=== PATIENT | male | born 1940 | race Caucasian/White ===

== ENCOUNTER 2020-10-09 22:54 | Observation (INO) | payer OTHER, MEDICARE ==
[~2020-10-09] VITALS: Ht 172.7 cm; Wt 80.4 kg
[2020-10-09 23:13] LABS: BASOPHILS ABSOLUTE AUTO 0.07 K/mm3 (0.00-0.23); BASOPHILS PERCENT AUTO 1 % (0-2); EOSINOPHILS ABSOLUTE AUTO 0.26 K/mm3 (0.00-0.68); EOSINOPHILS PERCENT AUTO 4 % (0-6); Hemoglobin 12.7 g/dL (13.5-17.5); IMMATURE GRAN ABSOLUTE AUTO 0.01 K/mm3 (0.00-0.10); IMMATURE GRAN PERCENT AUTO 0 % (0-1); LYMPHOCYTES ABSOLUTE AUTO 1.75 K/mm3 (0.84-5.20); LYMPHOCYTES PERCENT AUTO 25 % (21-46); MONOCYTES ABSOLUTE AUTO 0.63 K/mm3 (0.16-1.47); MONOCYTES PERCENT AUTO 9 % (4-13); Mean Corpuscular HGB 32.4 pg (26.0-34.0); Mean Corpuscular HGB Conc 33.4 g/dL (31.5-36.5); Mean Corpuscular Volume 97 fL (80-100); NEUTROPHILS ABSOLUTE AUTO 4.38 K/mm3 (1.96-9.15); NEUTROPHILS PERCENT AUTO 62 % (41-73); Platelet Count 176 K/mm3 (150-400); RDW Coefficient Variation 12.6 % (11.7-14.2); RDW Standard Deviation 44.9 fL (35.1-46.3); Red Blood Cell Count 3.92 M/mm3 (4.30-5.90)
[2020-10-09 23:27] LABS: Alanine Aminotransfer (ALT/SGP 34 U/L (12-78); Albumin, Blood 3.9 g/dL (3.4-5.0); Albumin/Globulin Ratio 1.2 (0.8-1.8); Alk Phos 63 U/L (50-136); Anion Gap 5 mmol/L (6-16); Aspartate Aminotrans (AST/SGOT 34 U/L (12-37); Bilirubin, Total 0.6 mg/dL (0.1-1.0); Blood Urea Nitrogen 15 mg/dL (8-24); Bun/Creatinine Ratio 15.7 (12.0-20.0); CO2, Blood 29 mmol/L (21-32); Calcium, Blood 9.4 mg/dL (8.5-10.1); Chloride, Blood 108 mmol/L (98-108); Creatinine, Blood 0.96 mg/dL (0.60-1.20); Globulin, Blood 3.3 g/dL (2.2-4.0); Glomerular Filtration Rate >60 (60-); Glucose, Blood 94 mg/dL (70-99); Potassium, Blood 4.5 mmol/L (3.5-5.5); Sodium, Blood 142 mmol/L (136-145); Total Protein, Blood 7.2 g/dL (6.4-8.2); Troponin I <0.015 ng/mL (0.000-0.040)
[2020-10-10] MEDS ORDERED: ZINC15 PO (01:51)
[2020-10-10] MEDS ORDERED: MAGCIT300 PO (01:52)
--- NOTE | 2020-10-10 01:54 | NUR ---
ASSUMED CARE PT CAME IN BY SHERIN FROM ED. HE IS ALERT AND ORIENTEDX4 ON ROOM AIR. VILTALS ARE STABLE. PT ABLE TO TRANSFER FROM GURNEY TO BED WITH MINIMAL HELP. REPORTS NOT DISCOMFORT AND NO WEAKNESS WAS NOTED AND STABLE ON FEET. SBA TO BATHROOM. WILL CONTINUE TO MONITOR.
--- NOTE | 2020-10-10 06:44 | NUR ---
SHIFT SUMMARY PT IS ALERT AND ORIENTED. HE DENIES PAIN, DISCOMFORT OR SOB. VITALS HAVE BEEN STABLE WITH SATS >92%. PT IS ABLE TO AMBULATE TO BATHROOM WITH MINIMAL ASSIST AND USES URINAL. PT IS MATCH-E-BE-NASH-SHE-WISH BAND. 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 PT WILL BE HAVING STRESS TEST THIS AM AND HAS BEEN NOTIFIED OF IT HE IS UNABLET O HAVE CAFFIENE PRODUCTS.
[2020-10-10 07:22] LABS: CHOL/HDL RATIO 3.7; Cholesterol 177 mg/dL (50-200); HDL Cholesterol 48 mg/dL (>39); LDL/HDL RATIO 2.2; Low Density Lipoprotein Chol 106 mg/dL (0-110); Triglycerides 117 mg/dL (30-160); Very Low Density Lipoprot Chol 23 mg/dL (6-32)
--- NOTE | 2020-10-10 12:39 | NUR ---
MID-SHIFT UPDATE PT WAS SLEEPING DURING MORNING REPORT, AND WOKE SON AFTER FOR BREAKFAST, MORNING MEDS AND ASSESSMENT. PT HAS BEEN SLEEPING THIS AFTERNOON WHEN CHECKED ON EACH HOUR. PT IS SCHEDULED FOR A STRESS TEST AT APPROXIMATELY 1400 TODAY AND IS CURRENTLY ONLY HAVING ICE AND WATER IN PREPARATION FOR THAT. PT DENIES CHEST PAIN, PRESSURE AND SOB AT THIS TIME. VS STABLE, PT ON RA
--- NOTE | 2020-10-10 17:38 | NUR ---
SHIFT SUMMARY PT COMPLETED THE RESTING PORTION OF THE STRESS TEST TODAY AND IS SCHEDULED TO COMPLETED THE 2ND DAY OF THE STRESS TEST TOMORROW. PT ALSO HAD AN ECHO COMPLETED THIS EVENING. PT IS NEW [place] AND HAS HIS HEARING AIDS AT THE BEDISE TO USE NEEDED. VS HAVE BEEN STABLE, PT ON RA. PT REPORTS AN OCCASSIONAL TWINGE OF PAIN IN HIS CHEST BUT IT IS NOT CONSTANT. PT IS RESTING IN BED HAVING DINNER AT THIS TIME
--- NOTE | 2020-10-10 22:46 | NUR ---
ASSUMED CARE OF PATIENT AT APPROXIMATELY [address] [place] RN. PATIENT ALERT AND ORIENTED X4; INDEPENDENT TO BATHROOM ALL DAY; VOIDS IN TOILET; ENCOURAGE URINAL USE FOR MEASURING. PATIENT DENIES CP/PRESSURE AND PAIN ELSEWHERE. NSR ON TELE; OXYGEN SATURATION ABOVE 90% ON ROOM AIR; PATIENT NPO AT MIDNIGHT FOR STRESS TEST IN AM. PIV S/L. PATIENT CURRENTLY RESTING IN BED; CALL LIGHT IN REACH; BED IN LOWEST POSISTION; BED ALARM ON
--- NOTE | 2020-10-11 00:22 | NUR ---
REPORT CALLED TO AMAURY ON SURGICAL FLOOR. PATIENT TO BE TRANSPORTED TO ROOM 228 VIA STRETCHER WITH ALL BELONGINGS BY [facility] AND ED.
--- NOTE | 2020-10-11 00:37 | NUR ---
PT TX FROM PCU. PT A/O, VSS, HR SINUS @ 63 PER TELE MONITOR. PT DENIES CP/SOB AT THIS TIME, REP HAD BRIEF EPISODE APPX 30 MIN AGO, PT STATES RESOLVED W/O INTERVENTION. PT ORIENTED TO ROOM/CALL LIGHT. PT NPO X WATER FOR PLAN FOR SECOND PART OF STRESS TEST IN AM. WILL MONITOR AND TX PER ORDERS.
--- NOTE | 2020-10-11 05:57 | NUR ---
PT HAS DENIED CP/PRESSURE/SOB SINCE ARRIVING TO FLOOR; VSS. PT NPO X WATER FOR PLANNED STRESS TEST THIS AM.
--- NOTE | 2020-10-11 11:00 | NUR ---
A&OX3, DENIES ANY CHEST PAIN, REPORTS HAVING SOME CHEST PAIN EARLIER STATES "IT ONLY LASTED FOR ABOUT A MINUTE" PT STATES HE DID NOT CALL TO REPORT CHEST PAIN, DENIES ANY OTHER DISCOMFORT, HAD 2ND PART OF STRESS TEST DONE THIS AM.
[2020-10-11] MEDS ORDERED: OMEP20ER PO (13:50)
--- NOTE | 2020-10-11 15:02 | NUR ---
DC'D HOME, DC INSTRUCTIONS GIVEN AND IV DC'D BY PAULO CLARK.
== END 2020-10-11 14:40 | disposition home or self-care (01) ==
LOC: ER 22:54 → PCU 22:55 → ER 10-10 01:25 → PCU 10-10 01:25 → SURS 10-11 00:24
PROVIDERS: Emergency Medicine; ADMIT Internal Medicine
DX: R07.9 Chest pain, unspecified (principal); R01.1 Cardiac murmur, unspecified; I10 Essential (primary) hypertension; I35.0 Nonrheumatic aortic (valve) stenosis; K21.9 Gastro-esophageal reflux disease without esophagitis; Z87.891 Personal history of nicotine dependence
CPT/HCPCS: 36415; 71046; 78452; 80053; 80061; 84484; 85025; 93005; 93010; 93017; 93306; 96372; 99285-25; A9270; A9500; G0378; J0706; J1650; J2785

== ENCOUNTER 2021-01-04 07:55 | Inpatient (IN) | payer OTHER, MEDICARE ==
[~2021-01-04] VITALS: Ht 172.7 cm; Wt 84.8 kg
[~2021-01-04 07:55] MED LIST: MAGCIT300 PO; OMEP20ER PO; ZINC15 PO
[2021-01-04 08:15] LABS: BASOPHILS ABSOLUTE AUTO 0.02 K/mm3 (0.00-0.23); BASOPHILS PERCENT AUTO 0 % (0-2); EOSINOPHILS PERCENT AUTO 0 % (0-6); Hematocrit 36.7 % (37.0-53.0); Hemoglobin 12.6 g/dL (13.5-17.5); IMMATURE GRAN ABSOLUTE AUTO 0.04 K/mm3 (0.00-0.10); IMMATURE GRAN PERCENT AUTO 0 % (0-1); LYMPHOCYTES ABSOLUTE AUTO 0.46 K/mm3 (0.84-5.20); LYMPHOCYTES PERCENT AUTO 5 % (21-46); MONOCYTES ABSOLUTE AUTO 0.48 K/mm3 (0.16-1.47); MONOCYTES PERCENT AUTO 5 % (4-13); Mean Corpuscular HGB 32.8 pg (26.0-34.0); Mean Corpuscular HGB Conc 34.3 g/dL (31.5-36.5); Mean Corpuscular Volume 96 fL (80-100); Mean Platelet Volume 10.7 fL (9.1-12.4); NEUTROPHILS ABSOLUTE AUTO 9.32 K/mm3 (1.96-9.15); NEUTROPHILS PERCENT AUTO 90 % (41-73); Platelet Count 202 K/mm3 (150-400); RDW Coefficient Variation 12.2 % (11.7-14.2); RDW Standard Deviation 41.9 fL (35.1-46.3); Red Blood Cell Count 3.84 M/mm3 (4.30-5.90); White Blood Cell Count 10.32 K/mm3 (4.00-11.30)
[2021-01-04 08:35] LABS: Alanine Aminotransfer (ALT/SGP 50 U/L (12-78); Albumin, Blood 4.1 g/dL (3.4-5.0); Albumin/Globulin Ratio 1.1 (0.8-1.8); Alk Phos 71 U/L (50-136); Anion Gap 7 mmol/L (6-16); Aspartate Aminotrans (AST/SGOT 64 U/L (12-37); Bilirubin, Total 1.1 mg/dL (0.1-1.0); Blood Urea Nitrogen 15 mg/dL (8-24); CO2, Blood 24 mmol/L (21-32); Calcium, Blood 9.3 mg/dL (8.5-10.1); Chloride, Blood 107 mmol/L (98-108); Creatinine, Blood 0.88 mg/dL (0.60-1.20); Globulin, Blood 3.8 g/dL (2.2-4.0); Glomerular Filtration Rate >60 (60-); Glucose, Blood 158 mg/dL (70-99); Sodium, Blood 138 mmol/L (136-145); Total Protein, Blood 7.9 g/dL (6.4-8.2)
[2021-01-04 10:36] LABS: International Normalized Ratio 0.97; Prothrombin Time Results 10.5 Sec (9.7-11.5)
[2021-01-04 11:04] LABS: SARS-Cov-2 (COVID-19) PCR, MMC NEGATIVE (NEGATIVE)
--- NOTE | 2021-01-04 14:17 | NUR ---
PT TRANSFERED TO [facility] VIA BED FROM [facility] FLOOR. History, Chart, Medications and Allergies reviewed before start of procedure. Lungs clear T/O to Auscultation. Patient confirms NPO status and agrees with scheduled surgery. Pre-Op teaching done. Pt verbalizes understanding. PT WAS A&O X 3 AND STATED HE WAS ABLE TO SIGN HIS OWN CONSENTS. PT'S SISTER, RICH, HIS HEALTH CARE PROXY WAS ADVISED AND AGREED. PT'S SIGNATURES WERE WITNESS BY RN.
--- NOTE | 2021-01-04 14:25 | NUR ---
PT'S NECKLACE WITH NASRIN AND [facility] PINNED TO THE NECK OF HIS GOWN BECAUSE IT WAS A GOOD LUCK CHARM. PT'S GLASSES AND DENTURES PLACED IN PACU.
--- NOTE | 2021-01-04 16:22 | NUR ---
PATIENT CAME BACK FROM PACU TODAY 01/04/21 AT 1600. POD 0 RIGHT HIP NAILING HE IS ALERT AND ORIENTED X2-3. VS ARE WNL AND IS ON RA. PATIENT DENIES ANY PAIN AT THIS TIME. THERE IS 2 AQUACEL DRESSINGS ON THE RIGHT HIP THAT ARE C/D/I. PATIENT IS ABLE TO WIGGLE TOES AND FINGERS. HE HAS FULL SENSATION IN ALL EXTREMITIES. PATIENT IS LAYING COMFORTABLY IN BED. CALL LIGHT WITHIN REACH.
[2021-01-04 19:07] LABS: Source, Urine Catheter
[2021-01-04 19:10] LABS: Appearance, Urine Clear (Clear); Bilirubin, Urine Neg (Neg); Blood, Urine 1+ (Neg); Color, Urine Yellow (P-Yellow); Glucose Qualitative, Urine Neg (Neg); Ketones, Urine 3+ (Neg); Leukocyte Esterase, Urine Neg (Neg); Nitrite, Urine Neg (Neg); Protein, Urine 1+ (Neg); Urobilinogen, Urine NORM (Normal)
[2021-01-04 19:21] LABS: Bacteria Few /hpf; Hyaline Casts 0-2 /lpf (0-2); Red Blood Cells, Urine 0-2 /hpf (0-2); Squamous Epithelial Cells Rare /hpf (Few); White Blood Cells, Urine 0-2 /hpf (0-5)
--- NOTE | 2021-01-04 19:54 | NUR ---
RECEIVED REPORT AND ASSUMED CARE OF PT. HE IS SITTING UP IN BED ATTEMPTING TO EAT DINNER. HE STATES THAT HE IS UNABLE TO HOLD ONTO THE SILVERWARE. RUBBER HANDLED SILVERWARE SENT UP FROM [employer]OD SERVICES. HE IS NOT ABLE TO MINING CONSULTANT THE SILVERWARE EFFECTIVELY NOR GET FOOD TO HIS MOUTH. HE REFUSES ASSISTANCE. CUPS OF FRUIT PROVIDED AT HIS REQUEST. [facility].
[2021-01-05 04:33] LABS: BASOPHILS PERCENT AUTO 0 % (0-2); EOSINOPHILS PERCENT AUTO 0 % (0-6); Hematocrit 27.5 % (37.0-53.0); Hemoglobin 9.5 g/dL (13.5-17.5); IMMATURE GRAN ABSOLUTE AUTO 0.08 K/mm3 (0.00-0.10); IMMATURE GRAN PERCENT AUTO 1 % (0-1); LYMPHOCYTES PERCENT AUTO 9 % (21-46); MONOCYTES ABSOLUTE AUTO 0.79 K/mm3 (0.16-1.47); MONOCYTES PERCENT AUTO 7 % (4-13); Mean Corpuscular HGB Conc 34.5 g/dL (31.5-36.5); Mean Corpuscular Volume 96 fL (80-100); Mean Platelet Volume 11.5 fL (9.1-12.4); NEUTROPHILS PERCENT AUTO 84 % (41-73); Platelet Count 186 K/mm3 (150-400); RDW Coefficient Variation 12.5 % (11.7-14.2); RDW Standard Deviation 43.5 fL (35.1-46.3); Red Blood Cell Count 2.88 M/mm3 (4.30-5.90); White Blood Cell Count 11.47 K/mm3 (4.00-11.30)
[2021-01-05 05:10] LABS: Anion Gap 6 mmol/L (6-16); Blood Urea Nitrogen 20 mg/dL (8-24); Bun/Creatinine Ratio 23.3 (12.0-20.0); CO2, Blood 24 mmol/L (21-32); Calcium, Blood 8.6 mg/dL (8.5-10.1); Chloride, Blood 106 mmol/L (98-108); Creatinine, Blood 0.86 mg/dL (0.60-1.20); Glomerular Filtration Rate >60 (60-); Glucose, Blood 135 mg/dL (70-99); Potassium, Blood 4.3 mmol/L (3.5-5.5); Sodium, Blood 136 mmol/L (136-145)
--- NOTE | 2021-01-05 07:50 | NUR ---
SHIFT SUMMARY: BEATRIS IS A&OX4. VSS, NO ACUTE EVENTS OVERNIGHT. HE DOES FIXATE ON IDEAS AND DOES NOT UNDERSTAND INSTRUCTIONS AT TIMES. WEIGHT BEARING STATUS EXPLAINED AND EDUCATED MORE THAN ONCE. HE IS LYING IN BED WITH THE CALL LIGHT IN REACH. HE HAS SIGNIFICANT DIFFICULTIES HOLDING AND MANIPULATING SILVERWEAR/CUPS, ETC. HE STATES THAT HE EATS WITH HIS HANDS AT HOME. HE ALSO STATES THAT HE IS CONCERNED THAT HIS SOON TO BE EX- WAS "ADDING SOMETHING" TO THE CREAMER/MAYONNAISE. HE STATES THAT HER PHONE NUMBER HAD CLEARED THE SECURITY SYSTEM, BUT DID NOT STATE THAT SHE WAS SEEN ON THE SECURITY CAMERAS. VALENTEELL X 2 TO R HIP C/D&I. HE IS LYING IN BED WITH THE CALL LIGHT IN REACH. WILL REPORT TO MARYA BRADY RN.
--- NOTE | 2021-01-05 10:03 | NUR ---
01/05/21 1003 Nunu Tse VERIFICATIONS: EDIT CHART.
--- NOTE | 2021-01-05 12:37 | NUR ---
PT states that the [place] this morning was very helpful for his pain. Assisted to eat lunch by the PCT, due to his extreme hand and arm weakness. Noted order for MRI of spine, and notified pt of this.
--- NOTE | 2021-01-05 15:59 | NUR ---
Patient tells me about the events that led to his hospitalization. He then talks at length about his family unit complications and shares personal information. I provide therapeutic listening and prayer. Patient responds well and shows signs of reduced stress. I will continue to remain available to patient and family.
--- NOTE | 2021-01-05 17:17 | NUR ---
Good pain control this shift. Pt on bedrest until MRI can be done. sterile proc tech is checking with [facility] in [place] where the pt had an implant done last year, to verify safety with MRI for spinal MRI ordered today by hospitalist. Noted this morning that the pt has an area of non-blanchable redness on his left sacral border, about 2 inches in diameter. Encouraged the pt to reposition only side to side to promote healing and prevent further breakdown. He verbalized agreement.
--- NOTE | 2021-01-05 17:53 | NUR ---
Alerted by [facility] PCT Margarette Cavanaugh that pt has not voided today. Was told in report that pt had cavazos dc'd at 4 am and had voided afterwards. Bladder scan showed greater than 1000cc. Call to Dr. Pardo and new orders received.
--- NOTE | 2021-01-05 18:08 | NUR ---
straight catheterization evacuated 1100 cc clear yellow urine. sample sent for UA per protocol.
[2021-01-05 18:17] LABS: Source, Urine Clean Catch
[2021-01-05 18:21] LABS: Appearance, Urine Clear (Clear); Bilirubin, Urine Neg (Neg); Blood, Urine 1+ (Neg); Color, Urine Yellow (P-Yellow); Glucose Qualitative, Urine Neg (Neg); Ketones, Urine Neg (Neg); Leukocyte Esterase, Urine Neg (Neg); Nitrite, Urine Neg (Neg); Protein, Urine Neg (Neg); Specific Gravity, Urine 1.015 (1.003-1.022); Urobilinogen, Urine NORM (Normal)
[2021-01-05 18:50] LABS: Amorphous Light (0-Heavy); Bacteria Few /hpf; Red Blood Cells, Urine 0-2 /hpf (0-2); Squamous Epithelial Cells Rare /hpf (Few)
--- NOTE | 2021-01-06 03:17 | NUR ---
0300: STRAIGHT CATH FOR Q8 HOUR BLADDER SCAN RESULTS OF 700 ML. PT STRAIGHT CATH BY RN MAINTAINING STERILE TECHNIQUE AND TOLERATED WELL; 650 ML CLEAR DARK YELLOW URINE.
[2021-01-06 04:33] LABS: Hematocrit 24.8 % (37.0-53.0); Hemoglobin 8.3 g/dL (13.5-17.5); Mean Corpuscular HGB 33.2 pg (26.0-34.0); Mean Corpuscular HGB Conc 33.5 g/dL (31.5-36.5); Mean Corpuscular Volume 99 fL (80-100); Mean Platelet Volume 11.2 fL (9.1-12.4); Platelet Count 139 K/mm3 (150-400); RDW Coefficient Variation 12.5 % (11.7-14.2); RDW Standard Deviation 45.1 fL (35.1-46.3); White Blood Cell Count 8.04 K/mm3 (4.00-11.30)
--- NOTE | 2021-01-06 05:14 | NUR ---
SUMMARY: POD 2 RIGHT HIP INTRAMEDULLARY NAILING BY DR. EDDY. PT TOLERATING PO INTAKE WELL. BEDREST PER PHYSICAL THERAPY RECOMMENDATIONS PENDING MRI; AWAITING CONFIRMATION FROM [facility] IN [place] THAT PENILE IMPLANT IS MRI SAFE BEFORE PROCEEDING. PT UNABLE TO VOID DESPITE ATTEMPTS TO USE URINAL WHILE SITTING UP TO SIDE OF BED. 0200 BLADDER SCAN AND STRAIGHT CATH WITH 650 ML RESULTS. PAIN WELL CONTROLLED WITH 1 TAB TRAMADOL AT BEDTIME. AWAIT MRI AND PLAN PENDING RESULTS.
[2021-01-06 05:15] LABS: Percent Saturation 8.3 % (20.0-50.0)
--- NOTE | 2021-01-06 15:01 | NUR ---
SHIFT SUMMARY: POD 2 RIGHT HIP NAILING PATIENT IS ALERT AND ORIENTED X2-3 DURING THE DAY. ACCORDING TO NIGHTSHIFT NURSE PATIENT BECOMES MORE CONFUSED TOWARDS THE NIGHT. VS ARE WNL AND IS ON RA. PATIENT DENIES PAIN AT THIS TIME. PATIENT IS STILL ON BEDREST UNTIL THE MRI IS DONE, WHICH WILL HOPEFULLY BE LATER THIS AFTERNOON. [facility] IN [place] SAID HIS IMPLANT WAS MRI SAFE. PATIENT IS TOLERATING PO INTAKE WITH FEEDING ASSISTANCE. HE IS ALSO UNABLE TO VOID DESPIDE ATTEMPTS TO USE URINAL. STRAIGHT CATHED HIM WITH 800 ML OF YELLOW URINE OUT. 2 AQUACELS ARE C/D/I. SISTER IS CURRENTLY AT BEDSIDE WITH HIM. TAP CALL LIGHT IS ON HIS TABLE AND IS WITHIN REACH. THE PLAN IS TO HAVE THE DOCTOR VIEW HIS MRI RESULTS ONCE MRI IS TAKEN.
--- NOTE | 2021-01-07 03:43 | NUR ---
SHIFT SUMMARY POD3 R HIP NAILING. PT AOX2-3, FORGETFUL AFTER AWAKEN AT MIDNIGHT BUT EASILY CAN BE REORIENTED. PT REPORTS NECK AND SHOULDER PAIN LAST NIGHT. REPOSITIONED AND KPAD IN PLACED. PT EXPRESSED RELIEF AND STATES THAT KPAD IS HELPING WITH PAIN. BLADDER SCANNED AT 2200 WITH 420ML, STRAIGHT CATH ACCORDING TO ORDER, URINE OUTPUT AT 900ML. PT SLEPT WELL T/O SHIFT. PAIN IS MANAGED WITH ULTRAM AND TYLENOL. TOLERATING PO INTAKE, DENIES N/V. CALL LIGHT WITHIN REACH. WILL PROVIDE REPORT TO ONCOMING NURSE.
--- NOTE | 2021-01-07 18:38 | NUR ---
SHIFT SUMMARY NO ACUTE CHANGES THIS SHIFT. POD #3 FOR R HIP NAILING. PT IS ABLE TO LIFT ARMS BILATERALLY BUT IS UNABLE TO MEETING FACILITATOR OBJECTS WITH HIS HANDS. A/O 2-3 AND ON BED REST. BLADDER SCANNED ACCORDING TO PROTOCOL AND STRAIGHT CATHED THE PATIENT. NO C/O PAIN THIS SHIFT. VSS.
--- NOTE | 2021-01-08 03:30 | NUR ---
SHIFT SUMMARY POD4 R HIP NAILING. NO ACUTE CHANGES OVERNIGHT. PT REMAIN TO HAVE WEAKNESS IN LIFTING ARMS BILATERALLY. HE REPORTS PAIN MAINLY ON HIS NECK/SHOULDER. REPOSITIONED PT, KPAD IN PLACED AND MEDICATED WITH TRAMADOL. PT AOX3. HE HASN'T VOID FOR FEW DAY, WE HAS BEEN STRAIGHT CATH, CALLED PROVIDER ABOUT THIS ISSUE. ADKINS CATH ORDER WAS IN PLACED. ADKINS CATH WAS PUT IN AT 2230, PT TOLERATED IT WELL. HE ALSO HAD SOME SNACKS AT MIDNIGHT. TOLERATING PO INTAKE. CALL LIGHT WITHIN REACH. WILL PROVIDE REPORT TO ONCOMING NURSE.
--- NOTE | 2021-01-08 17:34 | NUR ---
SHIFT SUMMARY PT IS POD #4 FROM A R HIP PINNING WITH DR. EDDY. PAIN IS MANAGED WITH PO PAIN MEDICATION. PT IS A Q2 TURN. ALLYVEN DRESSING APPLIED TO COCCYX. ADKINS CATHETER IN PLACE AND DRAINING WELL. BUE REMAIN WEAK BUT MOVEMENT IS IMPROVING. PT REQUIRES ASSISTANCE WITH FOOD AND DRINK. PLAN FOR POSSIBLE DISCHARGE TO SNF TOMORROW. VSS. WILL MONITOR UNTIL REPORT TO NOC RN.
--- NOTE | 2021-01-09 07:50 | NUR ---
SUMMARY PT PLAN D/C TO SNF TODAY.ON BOWEL CARE, BUT NO BM YET. DAY RN AWARE.
--- NOTE | 2021-01-09 18:06 | NUR ---
SHIFT SUMMARY PT HAS BEEN PLEASANT THIS SHIFT. HAS DIFFICULT TIME USING HANDS BUT REPORTS IT IS SLIGHTLY BETTER. NO BM TODAY. WORKED W/ PT/OT.
--- NOTE | 2021-01-10 04:06 | NUR ---
SHIFT SUMMARY: BEATRIS AROUSES EASILY AND RESPONDS APPROPRIATELY. VSS, NO ACUTE EVENTS OVERNIGHT. HE HAS BEEN AGITATED DURING THE NIGHT, COMPLAINING TO MULTIPLE STAFF MEMBERS ABOUT VARIOUS COMPLAINTS. ONE OF HIS COMPLAINTS WAS THAT HE WAS NOT GETTING HIS MAIL NOR HIS PERSONAL ITEMS FROM HOME ([employer]). HE WAS ENCOURAGED TO ASK HIS SISTER TO BRING THEM IN FOR HIM. HE STATED THAT SHE DOESN'T ANSWER THE PHONE. HE WAS REMINDED THAT HE WAS TALKING TO HER AT THE BEGINNING OF SHIFT. HE THEN STATED THAT SHE DOESN'T KNOW WHAT HE NEEDS. THIS NURSE OFFERED TO HELP HIM WRITE A LIST, WHICH HE REFUSED. HE COMPLAINED ABOUT THE BED BEING UNCOMFORTABLE, BUT REFUSED TO BE REPOSITIONED. HE STATED THAT HE WAS BEING STOLEN FROM WHILE HIS SISTER WAS STAYING AT HIS HOUSE, BUT THAT THE THEFT IS AN ONGOING PROBLEM FOR YEARS, ETC. BEHAVIORS CONSISTENT WITH SUNDOWNING/DEMENTIA. HE IS TOLERATING PO INTAKE WELL, ADKINS PATENT. HE IS LYING IN BED WITH THE CALL LIGHT IN REACH. WILL REPORT TO DAY SHIFT RN.
--- NOTE | 2021-01-10 17:26 | NUR ---
SHIFT SUMMARY PT WAS CONFUSED IN BEGENNING OF SHIFT UNTIL MIDDAY. WHEN SISTER CAME AROUND 1, HELPED CLEAR HIM UP SIGNIFICANTLY. WORKED W/ PT/OT. WAS ABLE TO DANGLE W/ MAX ASSIST. DENIES PAIN. LOVE NOEL WNL. CONTINUES TO STRUGGLE W/ HANDS/FINGERS DUE TO NEUROPATHY.
--- NOTE | 2021-01-11 04:50 | NUR ---
SHIFT SUMMARY POD#6. CONFUSED/NEEDS VERBAL REDIRECTION. DISCOMFORT CONTROLLED WITH X1 TYLENOL + ULTRAM THIS SHIFT. NO NAUSEA/EMESIS. DRESSING TO HIP C/D/I. PT RESTED WELL OVER NIGHT. ADKINS SECURE/PATENT. MOVES WELL IN BED. NO ACUTE CHANGES OVER NIGHT. BED ALARM ON FOR SAFETY. PT CURRENTLY RESTING IN BED WITH CALL LIGHT IN REACH.
--- NOTE | 2021-01-11 18:58 | NUR ---
SHIFT SUMMARY PAIN HAS BEEN MANAGED WITH PO PAIN MEDICATION. PLAN FOR DC TO SNF VS TRANSFER TO HIGHER LEVEL OF CARE FOR NEUROSURGERY. PT HAS WORKED WITH THERAPY AND WAS ABLE TO SIT AT THE EDGE OF THE BED. PT IS ABLE TO FEED HIMSELF FINGER FOODS. TURNS Q2. VSS. WILL MONITOR UNTIL REPORT TO NOC RN.
[2021-01-12 04:40] LABS: Hematocrit 27.8 % (37.0-53.0); Hemoglobin 9.3 g/dL (13.5-17.5); Mean Corpuscular HGB 32.2 pg (26.0-34.0); Mean Corpuscular HGB Conc 33.5 g/dL (31.5-36.5); Mean Corpuscular Volume 96 fL (80-100); Mean Platelet Volume 10.1 fL (9.1-12.4); Platelet Count 258 K/mm3 (150-400); RDW Coefficient Variation 12.4 % (11.7-14.2); RDW Standard Deviation 42.5 fL (35.1-46.3); Red Blood Cell Count 2.89 M/mm3 (4.30-5.90); White Blood Cell Count 7.98 K/mm3 (4.00-11.30)
[2021-01-12 04:56] LABS: Anion Gap 4 mmol/L (6-16); Blood Urea Nitrogen 17 mg/dL (8-24); CO2, Blood 30 mmol/L (21-32); Calcium, Blood 8.8 mg/dL (8.5-10.1); Chloride, Blood 99 mmol/L (98-108); Creatinine, Blood 0.77 mg/dL (0.60-1.20); Glomerular Filtration Rate >60 (60-); Glucose, Blood 103 mg/dL (70-99); Phosphorus, Blood 3.2 mg/dL (2.5-4.9); Potassium, Blood 3.9 mmol/L (3.5-5.5); Sodium, Blood 133 mmol/L (136-145)
--- NOTE | 2021-01-12 09:21 | NUR ---
SUMMARY PT CONFUSED TO SURROUNDINGS AND SITUATION TONIGHT. CLEARS BREIFLY WHEN REORIENTED, THEN FORGETS AGAIN. PT ANGRY T HIS AM. RAISING VOICE STATING HE NEEDS TO LEAVE TO KEEP "HIM" FROM "STEALING" HIS "APARTMENT COMPLEX ADAMANT HE WOULD JUST GET UP AND LEAVE.DISCUSSED WITH PT HIS INJURY AND HIS SURGERY,AND RISKS. 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
--- NOTE | 2021-01-12 10:38 | NUR ---
PT HAS EXPRESSED FRUSTRATION THIS MORNING REGARDING FAMILY/HOME ISSUES. PT WAS EDUCATED THAT HOSPITAL STAFF ARE UNABLE TO ASSIST HIM WITH FAMILY/HOME/LEGAL MATTERS. PT ALSO EXPRESSED FRUSTRATION TOWARD STAFF. PT WAS EDUCATED THAT STAFF WOULD BE HAPPY TO HELP HIM NEEDED AND ALSO TO BRING COFFEE AND REFRESHMENTS BUT HE NEEDS TO COMMUNICATE WITH STAFF REGARDING THESE MATTERS. PT WAS EDUCATED/ENCOURAGED TO TELL STAFF OF NEEDS/WANTS SO THEY CAN BE ADDRESSED. PT ALSO EXPRESSED FRUSTRATION THAT HE IS UNSURE OF HIS PLAN OF CARE. PT WAS EDUCATED REGARDING THE POSSIBILITY OF THE PLAN TO TRANSFER TO ANOTHER HOSPITAL, HE WAS ALSO EDUCATED REGARDING THAT PROCESS. PT STATED THAT NO ONE HAS BEEN UPDATING HIM. THIS RN WAS PRESENT WHEN DR. WILKS AND DEVIN GONZALES [employer] PLANT SUPERVISOR DISCUSSED THESE PLANS WITH HIM YESTERDAY. PT WAS EDUCATED TO ASK QUESTIONS AND NOTIFY STAFF IF HE DOES NOT UNDERSTAND THE PLAN. PT WAS EDUCATED THIS WILL HELP TO AVOID FRUSTRATION AND CONFUSION. PLAN TO REINFORCE EDUCATION AND EDUCATE PT ON THE PLAN OF CARE T/O THE DAY IN ORDER TO REDUCE FRUSTRATION. PT REPORTS THAT HE FEELS HIS INCREASED "AGGITATION" IS A RESULT OF HIS CURRENT HOME/FAMILY/LEGAL DIFFICULTIES. WILL CONTINUE TO MONITOR AND PROVIDE EDUCATION AND SUPPORT NEEDED.
--- NOTE | 2021-01-12 15:05 | NUR ---
PER DR. WILKS STILL WAITING FOR BED/ACCEPTING PHYSICIAN FOR TRANSFER. DISCUSSED INCREASED DISCOMFORT AND REQUESTED NSAIDS FROM DR. WILKS; ULTRAM RESTARTED FOR PAIN MANAGEMENT. DR. 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 WILKS CONTINUE WITH THIS PLAN OF CARE PT MAY BE TRANSFERRED FOR POSSIBLE SPINAL SURGERY.
--- NOTE | 2021-01-12 16:00 | NUR ---
SHIFT SUMMARY PT IS POD#7 FROM R HIP PINNING. PLAN FOR TRANSFER TO [facility] OR [facility] WHEN BED AVALIABLE. PT CONTINUES TO HAVE DECREASED SENSATION AND WEAKNESS TO ALL EXTREMITIES. PT IN BETTER SPIRITS THIS AFTERNOON. REPORT GIVEN TO GEOFFREY BATES.
--- NOTE | 2021-01-12 17:10 | NUR ---
assumed care of pt after receiving report from previous RN. pt lying in bed, a/o x 4, pleasant/cooperative.
--- NOTE | 2021-01-13 05:47 | NUR ---
SUMMARY PT WOKE CONFUSED TO HOSPITALIZATION.ANGRY.WANTS ANSWERS ABOUT HIS PERSONAL FINANCES REGARDING HIS PENDING DIVORCE AND HIS BANK ACCNTS ,HOME, ETC.I ADVISED PT I AM HIS IN HOSPITAL NURSE ONLY AND KNOW NOTHING OF HIS PERSONAL SITUATION AND I REMINDED HIM THAT YESTERDAY WHEN HE WOKE WITH SAME UPSET, HE EVENTUALLY REMEMBERED HIS SISTER WAS HELPING HIM.HE WAS FORGETFUL THAT SISTER VISITED HIM YESTERDAY AND WAS NOT TRUSTING OF THIS.PT CONTINUED ANGRY AND ARGUMENTATIVE WANTING ME TO TELL HIM EXACTLY WHAT TIME SISTER WAS HERE. I ADVISED HIM THAT I WORK SECTION HAND ONLY AND WAS ONLY ABLE TO TELL HIM VISITING HOURS START AT 2PM. I WAS NOT WORKING WHEN SHE ARRIVED,BUT DAY RN REPORTED SISTER HAD VISITED.PT DID NOT CEASE HIS UNRELENTING PICKING AT ME.I OFFERED SOMETHING TO DRINK AND BROUGHT [facility]LL MIST PER HIS REQUEST.PT HAS HIS PHONE AND WAS OFFERED HELP TO CALL SISTER IF HE WANTED TO. PT DECLINED.I CONFIRMED PT HAD CALL LIGHT WITHIN HIS REACH AND I LEFT THE ROOM.
--- NOTE | 2021-01-13 14:59 | NUR ---
GAVE REPORT TO NURSE CEJA AT [facility].
--- NOTE | 2021-01-13 18:08 | NUR ---
DISCHARGE NOTE: PATIENT AND FAMILY MEMEBER AT BEDSIDE WERE EDUCATED ON DISCHARGE INSTRUCTIONS AND WHERE HE WAS GOING. HE WILL BE TRANSFERRED VIA AMBULANCE TO [facility]. PATIENT AND FAMILY ARE IN AGREEMENT ON THIS PLAN. GAVE REPORT TO MARCIAL BATES AT [facility]. ADKINS IS PATENT AND DRAINING INTO ADKINS BAG WITH YELLOW URINE. PATIENT IS VOIDING AND HAS HAD 3 BM'S TODAY. HE IS ALSO TOLERATING PO INTAKE. MEPILEX HAS BEEN CHANGED ON HIS LOWER BACK. PATIENT HAS ITEMS IN THE ROOM GATHERED. PATIENT DENIES PAIN AT THIS TIME.
== END 2021-01-13 18:38 | disposition short-term general hospital (02) | DRG 481 ==
LOC: ER 07:55 → ERHOLD 10:02 → SURS 10:02
PROVIDERS: Emergency Medicine; Internal Medicine; Nurse Practitioner Acute Care; Orthopaedic Surgery; ADMIT Internal Medicine
PROC: 0QS606Z Reposition Right Upper Femur with Intramedullary Internal Fixation Device, Open Approach (ICD-10-PCS; principal; 2021-01-04 14:00)
DX: S72.141A Displaced intertrochanteric fracture of right femur, initial encounter for closed fracture (principal); M47.12 Other spondylosis with myelopathy, cervical region; Z20.822 Contact with and (suspected) exposure to COVID-19; M48.02 Spinal stenosis, cervical region; F03.90 Unspecified dementia, unspecified severity, without behavioral disturbance, psychotic disturbance, mood disturbance, and anxiety; I10 Essential (primary) hypertension; D50.9 Iron deficiency anemia, unspecified; N40.0 Benign prostatic hyperplasia without lower urinary tract symptoms; K21.9 Gastro-esophageal reflux disease without esophagitis; Z79.899 Other long term (current) drug therapy; Z87.891 Personal history of nicotine dependence; W18.30XA Fall on same level, unspecified, initial encounter
CPT/HCPCS: 36415; 70450; 72141; 73502; 80048; 80053; 80069; 81001; 82607; 82728; 82746; 83540; 83550; 85025; 85027; 85610; 85730; 93005; 93010; 97110; 97112; 97162; 97166; 97530; 97535; 99285-25; A9270; C1713; C1769; J0171; J0690; J1100; J1650; J1885; J2405; J2704; J3010; J7030; J7120; U0004

== ENCOUNTER 2021-01-22 22:26 | Emergency (ER) | payer OTHER, MEDICARE ==
[~2021-01-22] VITALS: Ht 172.7 cm; Wt 81.7 kg
[2021-01-22] MEDS ORDERED: PANT40 PO (23:44)
[2021-01-22] MEDS ORDERED: FERSU300 PO (23:44)
[2021-01-22] MEDS ORDERED: TAMS.4ER PO (23:44)
[2021-01-22] MEDS ORDERED: CYCL10 PO (23:45)
[2021-01-22] MEDS ORDERED: ACET325 PO (23:45)
[2021-01-22] MEDS ORDERED: MELA3 PO (23:45)
[2021-01-22] MEDS ORDERED: Norco 5-325 Ta1 EACH PO (23:46)
[2021-01-22] MEDS ORDERED: MIRALAX17 GM PO (23:46)
== END 2021-01-23 00:10 | disposition home or self-care (01) ==
LOC: ER 22:26
DX: G89.18 Other acute postprocedural pain (principal); M25.551 Pain in right hip; I10 Essential (primary) hypertension; K21.9 Gastro-esophageal reflux disease without esophagitis; Z87.891 Personal history of nicotine dependence; Z79.899 Other long term (current) drug therapy
CPT/HCPCS: 73502; 99283-25; A9270

== ENCOUNTER 2021-03-16 21:00 | Emergency (ER) | payer OTHER ==
[~2021-03-16] VITALS: Ht 172.7 cm; Wt 63.5 kg
[~2021-03-16 21:00] MED LIST changes: +ACET325 PO; +CYCL10 PO; +FERSU300 PO; +MELA3 PO; +MIRALAX17 GM PO; +Norco 5-325 Ta1 EACH PO; +PANT40 PO; +TAMS.4ER PO
[2021-03-16 23:38] LABS: BASOPHILS ABSOLUTE AUTO 0.05 K/mm3 (0.00-0.23); BASOPHILS PERCENT AUTO 1 % (0-2); EOSINOPHILS ABSOLUTE AUTO 0.08 K/mm3 (0.00-0.68); EOSINOPHILS PERCENT AUTO 1 % (0-6); Hematocrit 36.5 % (37.0-53.0); Hemoglobin 11.9 g/dL (13.5-17.5); IMMATURE GRAN ABSOLUTE AUTO 0.02 K/mm3 (0.00-0.10); IMMATURE GRAN PERCENT AUTO 0 % (0-1); LYMPHOCYTES ABSOLUTE AUTO 1.46 K/mm3 (0.84-5.20); LYMPHOCYTES PERCENT AUTO 25 % (21-46); MONOCYTES ABSOLUTE AUTO 0.39 K/mm3 (0.16-1.47); MONOCYTES PERCENT AUTO 7 % (4-13); Mean Corpuscular HGB Conc 32.6 g/dL (31.5-36.5); Mean Corpuscular Volume 92 fL (80-100); Mean Platelet Volume 12.2 fL (9.1-12.4); NEUTROPHILS PERCENT AUTO 66 % (41-73); Platelet Count 215 K/mm3 (150-400); RDW Coefficient Variation 13.4 % (11.7-14.2); RDW Standard Deviation 46.2 fL (35.1-46.3); Red Blood Cell Count 3.97 M/mm3 (4.30-5.90)
[2021-03-16 23:49] LABS: Alanine Aminotransfer (ALT/SGP 20 U/L (12-78); Albumin, Blood 3.7 g/dL (3.4-5.0); Albumin/Globulin Ratio 1.1 (0.8-1.8); Alk Phos 117 U/L (50-136); Anion Gap 10 mmol/L (6-16); Aspartate Aminotrans (AST/SGOT 15 U/L (12-37); Bilirubin, Total 0.7 mg/dL (0.1-1.0); Blood Urea Nitrogen 6 mg/dL (8-24); Bun/Creatinine Ratio 9.4 (12.0-20.0); CO2, Blood 25 mmol/L (21-32); Calcium, Blood 9.7 mg/dL (8.5-10.1); Chloride, Blood 101 mmol/L (98-108); Creatinine, Blood 0.64 mg/dL (0.60-1.20); Globulin, Blood 3.4 g/dL (2.2-4.0); Glomerular Filtration Rate >60 (60-); Glucose, Blood 110 mg/dL (70-99); Potassium, Blood 3.9 mmol/L (3.5-5.5); Sodium, Blood 136 mmol/L (136-145); Total Protein, Blood 7.1 g/dL (6.4-8.2)
[2021-03-17] MEDS ORDERED: Percocet 5-3251 EACH PO (00:45)
== END 2021-03-17 01:21 | disposition home or self-care (01) ==
LOC: ER 21:00
PROVIDERS: Student in an Organized Health Care Education/Training Program
DX: S72.351A Displaced comminuted fracture of shaft of right femur, initial encounter for closed fracture (principal); F03.90 Unspecified dementia, unspecified severity, without behavioral disturbance, psychotic disturbance, mood disturbance, and anxiety; I10 Essential (primary) hypertension; Z79.899 Other long term (current) drug therapy; W06.XXXA Fall from bed, initial encounter
CPT/HCPCS: 36415; 73502; 80053; 85025; 93005; 93010; 96374; 96375; 96376; 99283-25; A9270; J1885; J2270

== ENCOUNTER → 2021-12-05 | Outpatient (CLI) | payer SELFPAY ==
[~2021-12-05] MED LIST changes: +Percocet 5-3251 EACH PO
[2021-12-05 12:10] LABS: BASOPHILS ABSOLUTE AUTO 0.04 K/mm3 (0.00-0.23); BASOPHILS PERCENT AUTO 1 % (0-2); EOSINOPHILS ABSOLUTE AUTO 0.16 K/mm3 (0.00-0.68); EOSINOPHILS PERCENT AUTO 3 % (0-6); Hematocrit 40.4 % (37.0-53.0); IMMATURE GRAN ABSOLUTE AUTO 0.02 K/mm3 (0.00-0.10); IMMATURE GRAN PERCENT AUTO 0 % (0-1); LYMPHOCYTES ABSOLUTE AUTO 1.32 K/mm3 (0.84-5.20); LYMPHOCYTES PERCENT AUTO 23 % (21-46); MONOCYTES PERCENT AUTO 7 % (4-13); Mean Corpuscular HGB 31.4 pg (26.0-34.0); Mean Corpuscular HGB Conc 32.2 g/dL (31.5-36.5); Mean Corpuscular Volume 98 fL (80-100); Mean Platelet Volume 11.2 fL (9.1-12.4); NEUTROPHILS ABSOLUTE AUTO 3.79 K/mm3 (1.96-9.15); NEUTROPHILS PERCENT AUTO 66 % (41-73); Platelet Count 182 K/mm3 (150-400); RDW Coefficient Variation 12.2 % (11.7-14.2); RDW Standard Deviation 44.3 fL (35.1-46.3); Red Blood Cell Count 4.14 M/mm3 (4.30-5.90); White Blood Cell Count 5.73 K/mm3 (4.00-11.30)
== END | disposition home or self-care (01) ==
LOC: LAB SHORT 10:43 → LAB 10:43
PROVIDERS: Family Medicine
DX: D64.9 Anemia, unspecified (principal)
CPT/HCPCS: 85025

== ENCOUNTER → 2022-10-17 | Outpatient (CLI) | payer MEDICARE, OTHER ==
[2022-10-17 12:29] LABS: BASOPHILS ABSOLUTE AUTO 0.07 K/mm3 (0.00-0.23); BASOPHILS PERCENT AUTO 1 % (0-2); EOSINOPHILS ABSOLUTE AUTO 0.33 K/mm3 (0.00-0.68); EOSINOPHILS PERCENT AUTO 6 % (0-6); Hematocrit 37.7 % (37.0-53.0); Hemoglobin 12.3 g/dL (13.5-17.5); IMMATURE GRAN ABSOLUTE AUTO 0.02 K/mm3 (0.00-0.10); IMMATURE GRAN PERCENT AUTO 0 % (0-1); LYMPHOCYTES ABSOLUTE AUTO 1.38 K/mm3 (0.84-5.20); LYMPHOCYTES PERCENT AUTO 27 % (21-46); MONOCYTES ABSOLUTE AUTO 0.41 K/mm3 (0.16-1.47); MONOCYTES PERCENT AUTO 8 % (4-13); Mean Corpuscular HGB 31.9 pg (26.0-34.0); Mean Corpuscular HGB Conc 32.6 g/dL (31.5-36.5); Mean Corpuscular Volume 98 fL (80-100); Mean Platelet Volume 11.1 fL (9.1-12.4); NEUTROPHILS ABSOLUTE AUTO 2.98 K/mm3 (1.96-9.15); NEUTROPHILS PERCENT AUTO 57 % (41-73); Platelet Count 171 K/mm3 (150-400); RDW Coefficient Variation 12.9 % (11.7-14.2); RDW Standard Deviation 45.5 fL (35.1-46.3); Red Blood Cell Count 3.86 M/mm3 (4.30-5.90); White Blood Cell Count 5.19 K/mm3 (4.00-11.30)
[2022-10-17 13:32] LABS: Alanine Aminotransfer (ALT/SGP 26 U/L (12-78); Albumin, Blood 4.1 g/dL (3.4-5.0); Albumin/Globulin Ratio 1.1 (0.8-1.8); Alk Phos 75 U/L (50-136); Anion Gap 4 mmol/L (6-16); Aspartate Aminotrans (AST/SGOT 21 U/L (12-37); Bilirubin, Total 0.4 mg/dL (0.1-1.0); Blood Urea Nitrogen 18 mg/dL (8-24); Bun/Creatinine Ratio 23.3 (12.0-20.0); CHOL/HDL RATIO 3.7; CO2, Blood 27 mmol/L (21-32); Calcium, Blood 9.4 mg/dL (8.5-10.1); Chloride, Blood 108 mmol/L (98-108); Cholesterol 221 mg/dL (50-200); Creatinine, Blood 0.77 mg/dL (0.60-1.20); Globulin, Blood 3.7 g/dL (2.2-4.0); Glomerular Filtration Rate 91 (60-); Glucose, Blood 83 mg/dL (70-99); HDL Cholesterol 59 mg/dL (>39); LDL/HDL RATIO 2.5; Low Density Lipoprotein Chol 149 mg/dL (0-110); Potassium, Blood 4.1 mmol/L (3.5-5.5); Sodium, Blood 139 mmol/L (136-145); Total Protein, Blood 7.8 g/dL (6.4-8.2); Triglycerides 64 mg/dL (30-160); Very Low Density Lipoprot Chol 12 mg/dL (6-32)
== END | disposition home or self-care (01) ==
LOC: LAB SHORT 09:42
PROVIDERS: Family Medicine
DX: I10 Essential (primary) hypertension (principal); E78.5 Hyperlipidemia, unspecified
CPT/HCPCS: 80053; 80061; 85025

== ENCOUNTER 2022-12-13 08:35 | Day surgery (SDC) | payer OTHER ==
[~2022-12-13] VITALS: Ht 177.8 cm; Wt 77.1 kg
[2022-12-13] MEDS ORDERED: ATOR10 PO (09:21)
[2022-12-13] MEDS ORDERED: DUTASTERIDE0.5 M3 PO (09:21)
[2022-12-13] MEDS ORDERED: PROZAC2010 PO (09:22)
[2022-12-13] MEDS ORDERED: MELO7.5 (09:23)
[2022-12-13] MEDS ORDERED: LORAZEPAM0.5 MG PO (09:25)
--- NOTE | 2022-12-13 09:33 | NUR ---
12/13/22 0933 Dulce Wills AT [address] [id number]
[2022-12-13 10:42] VITALS: BP 139/73
== END 2022-12-13 10:45 | disposition home or self-care (01) ==
LOC: ORSCSDS 08:35
PROVIDERS: Ophthalmology
PROC: 08DJ3ZZ Extraction of Right Lens, Percutaneous Approach (ICD-10-PCS; principal; 2022-12-13 10:00)
DX: H25.11 Age-related nuclear cataract, right eye (principal); Z96.1 Presence of intraocular lens; I10 Essential (primary) hypertension; K21.9 Gastro-esophageal reflux disease without esophagitis; G30.9 Alzheimer's disease, unspecified; F02.818 Dementia in other diseases classified elsewhere, unspecified severity, with other behavioral disturbance; Z87.891 Personal history of nicotine dependence; Z79.899 Other long term (current) drug therapy
CPT/HCPCS: J2250; J3010; J3301; J7040; V2632

== ENCOUNTER 2023-03-01 14:54 | Emergency (ER) | payer OTHER ==
[~2023-03-01] VITALS: Ht 172.7 cm; Wt 63.5 kg
[~2023-03-01 14:54] MED LIST changes: +ATOR10 PO; +DUTASTERIDE0.5 M3 PO; +LORAZEPAM0.5 MG PO; +MELO7.5; +PROZAC2010 PO
[2023-03-01 16:13] VITALS: BP 120/71
[2023-03-01] MEDS ORDERED: DOCU100 PO (16:17)
[2023-03-01] MEDS ORDERED: DUTA.5 PO (16:18)
[2023-03-01] MEDS ORDERED: Diflucan150 MG PO (16:18)
[2023-03-01] MEDS ORDERED: QUETIAPINE FUM10011 PO (16:19)
[2023-03-01 16:23] LABS: BASOPHILS ABSOLUTE AUTO 0.04 K/mm3 (0.00-0.23); BASOPHILS PERCENT AUTO 1 % (0-2); EOSINOPHILS ABSOLUTE AUTO 0.01 K/mm3 (0.00-0.68); EOSINOPHILS PERCENT AUTO 0 % (0-6); Hematocrit 29.4 % (37.0-53.0); Hemoglobin 9.9 g/dL (13.5-17.5); IMMATURE GRAN ABSOLUTE AUTO 0.02 K/mm3 (0.00-0.10); IMMATURE GRAN PERCENT AUTO 0 % (0-1); LYMPHOCYTES ABSOLUTE AUTO 0.72 K/mm3 (0.84-5.20); LYMPHOCYTES PERCENT AUTO 10 % (21-46); MONOCYTES ABSOLUTE AUTO 0.73 K/mm3 (0.16-1.47); MONOCYTES PERCENT AUTO 10 % (4-13); Mean Corpuscular HGB 32.2 pg (26.0-34.0); Mean Corpuscular HGB Conc 33.7 g/dL (31.5-36.5); Mean Corpuscular Volume 96 fL (80-100); Mean Platelet Volume 10.9 fL (9.1-12.4); NEUTROPHILS ABSOLUTE AUTO 5.83 K/mm3 (1.96-9.15); NEUTROPHILS PERCENT AUTO 79 % (41-73); Platelet Count 157 K/mm3 (150-400); RDW Coefficient Variation 12.7 % (11.7-14.2); RDW Standard Deviation 44.3 fL (35.1-46.3); Red Blood Cell Count 3.07 M/mm3 (4.30-5.90); White Blood Cell Count 7.35 K/mm3 (4.00-11.30)
[2023-03-01 16:44] LABS: Albumin, Blood 3.7 g/dL (3.4-5.0); Bilirubin, Total 0.5 mg/dL (0.1-1.0); Bun/Creatinine Ratio 26.3 (12.0-20.0); Calcium, Blood 9.2 mg/dL (8.5-10.1); Creatinine, Blood 0.99 mg/dL (0.60-1.20); Globulin, Blood 3.6 g/dL (2.2-4.0); Potassium, Blood 4.6 mmol/L (3.5-5.5); Total Protein, Blood 7.3 g/dL (6.4-8.2)
[2023-03-01 17:41] LABS: Source, Urine Clean Catch
[2023-03-01 17:44] LABS: Appearance, Urine Hazy (Clear); Bilirubin, Urine Neg (Neg); Blood, Urine 2+ (Neg); Color, Urine Yellow (P-Yellow); Glucose Qualitative, Urine Neg (Neg); Ketones, Urine Neg (Neg); Leukocyte Esterase, Urine 2+ (Neg); Nitrite, Urine Neg (Neg); Protein, Urine 1+ (Neg); Specific Gravity, Urine 1.015 (1.003-1.022); Urobilinogen, Urine NORM (Normal); pH, Urine 6.5 (5.0-8.0)
[2023-03-01 17:51] LABS: Bacteria Many /hpf; Red Blood Cells, Urine 0-2 /hpf (0-2); Squamous Epithelial Cells Rare /hpf (Few); White Blood Cells, Urine 50-100 /hpf (0-5)
[2023-03-01 17:52] LABS: Amorphous Light (0-Heavy)
[2023-03-01] MEDS ORDERED: Bactrim Ds Tab1 EACH PO (18:15)
== END 2023-03-01 19:58 | disposition home or self-care (01) ==
LOC: ER 14:54
PROVIDERS: Physician Assistant; Student in an Organized Health Care Education/Training Program
DX: N39.0 Urinary tract infection, site not specified (principal); Z79.2 Long term (current) use of antibiotics; Z79.890 Hormone replacement therapy; Z79.899 Other long term (current) drug therapy; Z86.59 Personal history of other mental and behavioral disorders; I10 Essential (primary) hypertension; K21.9 Gastro-esophageal reflux disease without esophagitis; Z87.891 Personal history of nicotine dependence
CPT/HCPCS: 71046; 80053; 81001; 85025; 87077; 87086; 87186; J0696

== ENCOUNTER 2023-03-03 02:48 | Emergency (ER) | payer OTHER ==
[~2023-03-03] VITALS: Ht 175.3 cm; Wt 79.4 kg
[~2023-03-03 02:48] MED LIST changes: +Bactrim Ds Tab1 EACH PO; +DOCU100 PO; +DUTA.5 PO; +Diflucan150 MG PO; +QUETIAPINE FUM10011 PO
[2023-03-03 03:41] LABS: BASOPHILS ABSOLUTE AUTO 0.02 K/mm3 (0.00-0.23); BASOPHILS PERCENT AUTO 0 % (0-2); EOSINOPHILS ABSOLUTE AUTO 0.02 K/mm3 (0.00-0.68); EOSINOPHILS PERCENT AUTO 0 % (0-6); Hemoglobin 8.8 g/dL (13.5-17.5); IMMATURE GRAN ABSOLUTE AUTO 0.02 K/mm3 (0.00-0.10); IMMATURE GRAN PERCENT AUTO 0 % (0-1); LYMPHOCYTES ABSOLUTE AUTO 0.93 K/mm3 (0.84-5.20); LYMPHOCYTES PERCENT AUTO 16 % (21-46); MONOCYTES ABSOLUTE AUTO 0.52 K/mm3 (0.16-1.47); MONOCYTES PERCENT AUTO 9 % (4-13); Mean Corpuscular HGB 32.5 pg (26.0-34.0); Mean Corpuscular HGB Conc 33.8 g/dL (31.5-36.5); Mean Corpuscular Volume 96 fL (80-100); Mean Platelet Volume 10.8 fL (9.1-12.4); NEUTROPHILS ABSOLUTE AUTO 4.45 K/mm3 (1.96-9.15); NEUTROPHILS PERCENT AUTO 75 % (41-73); Platelet Count 113 K/mm3 (150-400); RDW Coefficient Variation 12.6 % (11.7-14.2); RDW Standard Deviation 44.3 fL (35.1-46.3); Red Blood Cell Count 2.71 M/mm3 (4.30-5.90); White Blood Cell Count 5.96 K/mm3 (4.00-11.30)
[2023-03-03 03:51] LABS: Albumin/Globulin Ratio 0.9 (0.8-1.8); Bilirubin, Total 0.3 mg/dL (0.1-1.0); Bun/Creatinine Ratio 24.4 (12.0-20.0); Calcium, Blood 7.9 mg/dL (8.5-10.1); Creatinine, Blood 1.27 mg/dL (0.60-1.20); Globulin, Blood 3.2 g/dL (2.2-4.0); Potassium, Blood 4.3 mmol/L (3.5-5.5); Total Protein, Blood 6.2 g/dL (6.4-8.2)
[2023-03-03 05:30] VITALS: BP 131/70
[2023-03-04] MEDS ORDERED: ATOR10 PO (07:23)
[2023-03-04] MEDS ORDERED: DUTA.5 PO ×2 (07:23→16:12)
[2023-03-04] MEDS ORDERED: QUET25 PO (07:23)
[2023-03-04] MEDS ORDERED: MELO7.5 PO ×2 (07:24→16:18)
[2023-03-04] MEDS ORDERED: Prozac20 MG PO ×2 (07:24→16:15)
[2023-03-04] MEDS ORDERED: ACET325 PO (16:08)
[2023-03-04] MEDS ORDERED: BACTRIM DS TAB1 EAC6 PO (16:10)
[2023-03-04] MEDS ORDERED: Colace100 MG PO (16:12)
[2023-03-04] MEDS ORDERED: Diflucan150 MG PO (16:15)
[2023-03-04] MEDS ORDERED: LOPE2C PO (16:16)
[2023-03-04] MEDS ORDERED: LORA.5 PO (16:17)
[2023-03-04] MEDS ORDERED: MELA3 PO (16:18)
[2023-03-04] MEDS ORDERED: ONDA4ODT MM (16:19)
== END 2023-03-03 08:59 | disposition home or self-care (01) ==
LOC: ER 02:48
PROVIDERS: Emergency Medicine
DX: I95.9 Hypotension, unspecified (principal); E86.0 Dehydration; F03.90 Unspecified dementia, unspecified severity, without behavioral disturbance, psychotic disturbance, mood disturbance, and anxiety; I10 Essential (primary) hypertension; D64.9 Anemia, unspecified; Z79.899 Other long term (current) drug therapy; Z87.891 Personal history of nicotine dependence
CPT/HCPCS: 80053; 83605; 84145; 85025; 93005; 93010; J7030

== ENCOUNTER → 2023-07-04 | Outpatient (CLI) | payer MEDICARE ==
[~2023-07-04] MED LIST changes: +ATROPINE SULFATE2 M1 SL; +BACTRIM DS TAB1 EAC6 PO; +Colace100 MG PO; +LOPE2C PO; +LORA.5 PO; +MELO7.5 PO; +MORP20L SL; +ONDA4ODT MM; +Prozac20 MG PO; +QUET25 PO
[2023-07-04 19:26] LABS: BASOPHILS ABSOLUTE AUTO 0.06 K/mm3 (0.00-0.23); BASOPHILS PERCENT AUTO 1 % (0-2); EOSINOPHILS ABSOLUTE AUTO 0.32 K/mm3 (0.00-0.68); EOSINOPHILS PERCENT AUTO 5 % (0-6); Hematocrit 37.5 % (37.0-53.0); Hemoglobin 12.3 g/dL (13.5-17.5); IMMATURE GRAN ABSOLUTE AUTO 0.01 K/mm3 (0.00-0.10); IMMATURE GRAN PERCENT AUTO 0 % (0-1); LYMPHOCYTES ABSOLUTE AUTO 1.32 K/mm3 (0.84-5.20); LYMPHOCYTES PERCENT AUTO 22 % (21-46); MONOCYTES ABSOLUTE AUTO 0.43 K/mm3 (0.16-1.47); MONOCYTES PERCENT AUTO 7 % (4-13); Mean Corpuscular HGB 31.8 pg (26.0-34.0); Mean Corpuscular HGB Conc 32.8 g/dL (31.5-36.5); Mean Corpuscular Volume 97 fL (80-100); Mean Platelet Volume 11.1 fL (9.1-12.4); NEUTROPHILS ABSOLUTE AUTO 3.92 K/mm3 (1.96-9.15); NEUTROPHILS PERCENT AUTO 65 % (41-73); Platelet Count 172 K/mm3 (150-400); RDW Coefficient Variation 12.7 % (11.7-14.2); RDW Standard Deviation 44.8 fL (35.1-46.3); Red Blood Cell Count 3.87 M/mm3 (4.30-5.90); White Blood Cell Count 6.06 K/mm3 (4.00-11.30)
[2023-07-04 19:52] LABS: Albumin, Blood 4.2 g/dL (3.4-5.0); Albumin/Globulin Ratio 1.1 (0.8-1.8); Bilirubin, Total 0.4 mg/dL (0.1-1.0); Bun/Creatinine Ratio 17.3 (12.0-20.0); Calcium, Blood 9.7 mg/dL (8.5-10.1); Creatinine, Blood 1.1 mg/dL (0.60-1.20); Globulin, Blood 3.8 g/dL (2.2-4.0); Potassium, Blood 4.6 mmol/L (3.5-5.5)
== END ==
LOC: LAB 09:37 → LAB SHORT 09:37
PROVIDERS: Physician Assistant
DX: I10 Essential (primary) hypertension (principal); Z86.2 Personal history of diseases of the blood and blood-forming organs and certain disorders involving the immune mechanism
CPT/HCPCS: 80053; 85025